=== PATIENT | female | born 1990 | race Hispanic/Latino ===

== ENCOUNTER 2018-07-03 09:00 | Inpatient (IN) | payer OTHER, MEDICAID ==
[2018-07-03 15:27] LABS: HEMATOCRIT 37.3 % (36-48); MEAN CORPUSCULAR HEMOGLOBIN 32.1 pg (27.0-33.0); MEAN CORPUSCULAR HGB CONC 34.2 g/dL (32.0-36.0); MEAN CORPUSCULAR VOLUME 93.9 fL (79-99); NUCLEATED RED BLOOD CELLS 0.1 % (0.0-0.19); PLATELET COUNT (AUTO) 168 K/uL (130-400); RED BLOOD CELL COUNT(AUTO) 3.98 MIL/uL (4.00-5.50); RED CELL DISTRIBUTION WIDTH 14.5 % (11.0-15.5); WHITE BLOOD COUNT (AUTO) 10.9 K/uL (4.8-10.8)
[2018-07-04] MEDS ORDERED: CEFAZOLIN SODIUM 1 GM VIAL IVP PRN (06:15)
[2018-07-04] MEDS ORDERED: LACTATED RINGERS 1000ML 1,000 ML IV SCH (06:15)
[2018-07-04] MEDS ORDERED: CALDOLOR 800MG+NS 250ML 250 ML IV PRN (06:15)
[2018-07-04] MEDS ORDERED: DURAMORPH PF1 MG/ML 10ML AMP IV ONE (08:20)
[2018-07-04] MEDS ORDERED: SENSORCAINE/DEXT/PF 0.75% 2ML AMP IJ ONE (08:28)
[2018-07-04] MEDS ORDERED: CEFAZOLIN SODIUM 1 GM VIAL IVP ONE (08:40)
[2018-07-04] MEDS ORDERED: EPHEDRINE SULFATE 50 MG/ML AMPULE ONE (09:24)
[2018-07-04] MEDS ORDERED: SODIUM CHLORIDE 0.9% 10 ML VIAL IVP PRN (09:45)
[2018-07-04 11:13] VITALS: BP 107/56
[2018-07-04] MEDS ORDERED: HYDROCODONE/ACETAMINOPHEN 5/325 MG TAB PO PRN (11:30)
[2018-07-04] MEDS ORDERED: EPHEDRINE SULFATE 50 MG/ML AMPULE IVP PRN (11:30)
[2018-07-04] MEDS ORDERED: ONDANSETRON HCL 4 MG/2 ML VIAL IVP PRN (11:30)
[2018-07-04] MEDS ORDERED: ONDANSETRON HCL 4 MG/2 ML 8 MG in SODIUM CHLORIDE 0.9% 50 ML IVP NR (11:30)
[2018-07-04] MEDS ORDERED: MORPHINE SULFATE 2 MG/ML 1ML SYG IVP PRN (11:30)
[2018-07-04] MEDS ORDERED: NALOXONE HCL 0.4 MG/1 ML ML IVP PRN ×2 (11:30)
[2018-07-04] MEDS ORDERED: METOCLOPRAMIDE 10 MG/2 ML VIAL IVP PRN (11:30)
[2018-07-04] MEDS ORDERED: PROMETHAZINE HCL 25 MG/ML 1ML AMPULE IM PRN (11:30)
[2018-07-04] MEDS ORDERED: DiphenhydrAMINE HCL 50 MG/ML VIAL IVP PRN (11:30)
[2018-07-04] MEDS: ONDANSETRON HCL 4 MG/2 ML VIAL IVP PRN ×3 (12:12→21:05)
[2018-07-04] MEDS: HYDROCODONE/ACETAMINOPHEN 5/325 MG TAB PO PRN ×3 (12:37→21:25)
[2018-07-04] MEDS: DEXTROSE 5 %-0.45 % NACL 1,000 ML IV PRN ×2 (12:51→19:02)
[2018-07-04 15:20] VITALS: BP 102/68
[2018-07-04 20:16] VITALS: BP 111/71
[2018-07-04 23:56] VITALS: BP 102/67
[2018-07-05] MEDS: DEXTROSE 5 %-0.45 % NACL 1,000 ML IV PRN ×2 (00:42→06:52)
[2018-07-05] MEDS: HYDROCODONE/ACETAMINOPHEN 5/325 MG TAB PO PRN ×5 (01:25→20:25)
[2018-07-05 04:07] VITALS: BP 124/56
[2018-07-05] MEDS ORDERED: ACETAMINOPHEN-CODEINE 300/30MG TAB PO PRN (07:00)
[2018-07-05] MEDS ORDERED: BISACODYL 10 MG SUPP.RECT RC PRN (07:00)
[2018-07-05] MEDS ORDERED: ACETAMINOPHEN EXTRA STRENGTH 500 MG TABLET PO PRN (07:00)
[2018-07-05 07:16] LABS: BASOPHILS % (AUTO) 0.2 % (0.0-5.0); EOSINOPHILS % (AUTO) 0.6 % (0.0-8.0); HEMATOCRIT 33.8 % (36-48); LYMPHOCYTES % (AUTO) 24.3 % (21.0-51.0); MEAN CORPUSCULAR HEMOGLOBIN 33.2 pg (27.0-33.0); MEAN CORPUSCULAR HGB CONC 34.6 g/dL (32.0-36.0); MONOCYTES % (AUTO) 6.2 % (3.0-13.0); NEUTROPHILS % (AUTO) 68.7 % (40.0-77.0); PLATELET COUNT (AUTO) 134 K/uL (130-400); RED BLOOD CELL COUNT(AUTO) 3.52 MIL/uL (4.00-5.50); RED CELL DISTRIBUTION WIDTH 14.4 % (11.0-15.5); WHITE BLOOD COUNT (AUTO) 9.6 K/uL (4.8-10.8)
[2018-07-05 07:47] VITALS: BP 97/56
[2018-07-05] MEDS: DOCUSATE SODIUM 100 MG CAP PO SCH ×2 (08:13→20:24)
[2018-07-05] MEDS: SIMETHICONE 80 MG TAB.CHEW PO PRN ×4 (08:13→20:24)
[2018-07-05] MEDS: DIPH,PERTUSS(ACELL),TET VAC/PF 0.5 ML VIAL IM SCH ×2 (08:19→20:09)
[2018-07-05 08:21] LABS: HEPATITIS Bs ANTIGEN SCREEN P Negative (Negative)
[2018-07-05] MEDS: IBUPROFEN 800 MG TAB PO SCH ×2 (08:49→18:23)
[2018-07-05 11:16] VITALS: BP 103/54
[2018-07-05 15:26] VITALS: BP 111/67
[2018-07-05 19:31] VITALS: BP 112/62
[2018-07-05 23:23] VITALS: BP 138/64
[2018-07-06] MEDS: IBUPROFEN 800 MG TAB PO SCH ×2 (02:02→09:03)
[2018-07-06] MEDS ORDERED: LACTATED RINGERS 1000ML 1,000 ML IV SCH (02:15)
[2018-07-06 03:31] VITALS: BP 119/57
[2018-07-06 07:35] VITALS: BP 113/64
[2018-07-06 07:39] VITALS: BP 108/72
[2018-07-06] MEDS: SIMETHICONE 80 MG TAB.CHEW PO PRN ×2 (09:02→13:37)
[2018-07-06] MEDS: DOCUSATE SODIUM 100 MG CAP PO SCH (09:02)
[2018-07-06 11:14] VITALS: BP 105/66
== END 2018-07-06 14:40 | disposition home or self-care (01) | DRG 766 ==
LOC: EDSTATUS 09:00 → LDH 07-04 05:38 → WSH 07-04 11:10
PROC: 0UB70ZZ Excision of Bilateral Fallopian Tubes, Open Approach (ICD-10-PCS; 2018-07-04)
PROC: 10D00Z1 Extraction of Products of Conception, Low, Open Approach (ICD-10-PCS; principal; 2018-07-04 08:00)
PROC: 3E0234Z Introduction of Serum, Toxoid and Vaccine into Muscle, Percutaneous Approach (ICD-10-PCS; 2018-07-05)
DX: O34.211 Maternal care for low transverse scar from previous cesarean delivery (principal); Z3A.39 39 weeks gestation of pregnancy; Z37.0 Single live birth; Z23 Encounter for immunization; Z30.2 Encounter for sterilization; Z83.3 Family history of diabetes mellitus; Z84.89 Family history of other specified conditions
CPT/HCPCS: 36415; 59510; 85025; 85027; 86592; 86850; 86900; 86901; 87340; 88302; 90715; A4344; A4606; J0690; J1741; J2274; J2405; J3490; J7120; Q2038